=== PATIENT | female | born 1975 | race Two or more races ===

== ENCOUNTER 2020-03-05 13:50 | Outpatient (CLI) | payer MEDICARE, OTHER | END 2020-03-05 23:59 | disposition home or self-care (01) | LOC: WOU 13:50 | PROVIDERS: ATTEND Surgery | DX: T81.89XA Other complications of procedures, not elsewhere classified, initial encounter (principal); E66.9 Obesity, unspecified; Z68.33 Body mass index [BMI] 33.0-33.9, adult; M06.9 Rheumatoid arthritis, unspecified; Z85.040 Personal history of malignant carcinoid tumor of rectum | CPT/HCPCS: 87070; 87077; G0463 ==

== ENCOUNTER 2020-03-08 15:47 | Outpatient (CLI) | payer MEDICARE, OTHER | END 2020-03-08 23:59 | disposition home or self-care (01) | LOC: LAB 15:47 | PROVIDERS: ATTEND Surgery | DX: N61.0 Mastitis without abscess (principal) | CPT/HCPCS: 87070-TC; 87075-TC ==

== ENCOUNTER 2020-03-13 12:30 | Outpatient (CLI) | payer MEDICARE, OTHER | END 2020-03-13 23:59 | disposition home or self-care (01) | LOC: WOU 12:30 | PROVIDERS: ATTEND Internal Medicine Infectious Disease | DX: S21.002D Unspecified open wound of left breast, subsequent encounter (principal); B95.62 Methicillin resistant Staphylococcus aureus infection as the cause of diseases classified elsewhere; X58.XXXD Exposure to other specified factors, subsequent encounter; Z98.890 Other specified postprocedural states; Z85.048 Personal history of other malignant neoplasm of rectum, rectosigmoid junction, and anus; Z86.018 Personal history of other benign neoplasm; E66.9 Obesity, unspecified; Z68.33 Body mass index [BMI] 33.0-33.9, adult; I10 Essential (primary) hypertension; M06.9 Rheumatoid arthritis, unspecified | CPT/HCPCS: G0463 ==

== ENCOUNTER 2020-03-16 10:05 | Outpatient (CLI) | payer MEDICARE, OTHER ==
[2020-03-16 12:10] LABS: BASOPHILS # (AUTO) 0.1 /CMM (0.0-0.2); EOSINOPHILS % (AUTO) 5.9 % (0.0-6.0); HEMATOCRIT 36 % (33-45); HEMOGLOBIN 12.1 g/dL (11.5-14.8); LYMPHOCYTES # (AUTO) 2.3 /CMM (0.8-4.8); LYMPHOCYTES % (AUTO) 31.5 % (20.0-44.0); MEAN CORPUSCULAR HGB CONC 34 g/dl (31.0-36.0); MEAN CORPUSCULAR VOLUME 87 fL (82-100); MONOCYTES # (AUTO) 0.6 /CMM (0.1-1.30); MONOCYTES % (AUTO) 8.3 % (2.0-12.0); NEUTROPHILS % (AUTO) 53.3 % (43.0-81.0); PLATELET COUNT (AUTO) 273 /CMM (150-450); RED BLOOD CELL COUNT(AUTO) 4.09 MIL/uL (4.0-5.2); WHITE BLOOD COUNT (AUTO) 7.4 K/uL (4.3-11.0)
[2020-03-16 12:27] LABS: ALBUMIN 3.7 g/dL (3.4-5.0); BILIRUBIN,TOTAL 0.3 mg/dL (0.2-1.0); CALCIUM, SERUM 9.1 mg/dL (8.5-10.1); CREATININE 1.1 mg/dL (0.6-1.3); POTASSIUM 4.1 mmol/L (3.5-5.1); TOTAL PROTEIN, SERUM 7.1 g/dL (6.4-8.2)
== END 2020-03-16 23:59 | disposition home or self-care (01) ==
LOC: WOU 10:05
PROVIDERS: ATTEND Internal Medicine Infectious Disease
DX: Z45.2 Encounter for adjustment and management of vascular access device (principal); N61.0 Mastitis without abscess
CPT/HCPCS: 36415; 36569; 80053; 85025; C1751 ×2

== ENCOUNTER 2020-03-26 14:00 | Outpatient (CLI) | payer MEDICARE, OTHER | END 2020-03-26 23:59 | disposition home health service (06) | LOC: WOU 14:00 | PROVIDERS: ATTEND Surgery | DX: T81.89XA Other complications of procedures, not elsewhere classified, initial encounter (principal); E66.9 Obesity, unspecified; Z68.33 Body mass index [BMI] 33.0-33.9, adult; I10 Essential (primary) hypertension; M06.9 Rheumatoid arthritis, unspecified; Z85.048 Personal history of other malignant neoplasm of rectum, rectosigmoid junction, and anus; Z79.899 Other long term (current) drug therapy; Z98.890 Other specified postprocedural states | CPT/HCPCS: 11042 ==

== ENCOUNTER 2020-04-02 14:35 | Outpatient (CLI) | payer MEDICARE, OTHER | END 2020-04-02 23:59 | disposition home or self-care (01) | LOC: WOU 14:35 | PROVIDERS: ATTEND Surgery | DX: S21.002D Unspecified open wound of left breast, subsequent encounter (principal); X58.XXXD Exposure to other specified factors, subsequent encounter; N64.4 Mastodynia; L03.115 Cellulitis of right lower limb; I10 Essential (primary) hypertension; M06.9 Rheumatoid arthritis, unspecified; E66.9 Obesity, unspecified; Z68.33 Body mass index [BMI] 33.0-33.9, adult; Z85.048 Personal history of other malignant neoplasm of rectum, rectosigmoid junction, and anus; Z79.899 Other long term (current) drug therapy | CPT/HCPCS: G0463 ==

== ENCOUNTER 2020-04-09 14:15 | Outpatient (CLI) | payer MEDICARE, OTHER | END 2020-04-09 23:59 | disposition home health service (06) | LOC: WOU 14:15 | PROVIDERS: ATTEND Surgery | DX: S21.002D Unspecified open wound of left breast, subsequent encounter (principal); X58.XXXD Exposure to other specified factors, subsequent encounter; N64.4 Mastodynia; L03.115 Cellulitis of right lower limb; I10 Essential (primary) hypertension; M06.9 Rheumatoid arthritis, unspecified; M79.7 Fibromyalgia; Z85.048 Personal history of other malignant neoplasm of rectum, rectosigmoid junction, and anus; E66.9 Obesity, unspecified; Z68.33 Body mass index [BMI] 33.0-33.9, adult; Z79.899 Other long term (current) drug therapy | CPT/HCPCS: G0463 ==

== ENCOUNTER 2020-05-21 14:30 | Outpatient (CLI) | payer MEDICARE, OTHER | END 2020-05-21 23:59 | disposition home health service (06) | LOC: WOU 14:30 | PROVIDERS: ATTEND Surgery | DX: N64.4 Mastodynia (principal); K62.89 Other specified diseases of anus and rectum; E66.9 Obesity, unspecified; Z68.33 Body mass index [BMI] 33.0-33.9, adult; I10 Essential (primary) hypertension; M06.9 Rheumatoid arthritis, unspecified; Z85.048 Personal history of other malignant neoplasm of rectum, rectosigmoid junction, and anus; Z79.899 Other long term (current) drug therapy | CPT/HCPCS: G0463 ==